=== PATIENT | male | born 1970 | race Caucasian/White ===

== ENCOUNTER 2019-09-02 05:43 | Day surgery (SDC) | payer OTHER ==
[~2019-09-02] VITALS: Ht 188 cm; Wt 97.5 kg
[~2019-09-02 05:43] MED LIST: CLARITIN 10 MG10 MG PO; VITAMIN D3 PO
[2019-09-02] MEDS ORDERED: NEXIUM20 MG (06:41)
[2019-09-02 06:52] VITALS: BP 120/61; Ht 188 cm; Wt 97.5 kg
[2019-09-02] MEDS ORDERED: BC POWDER (07:02)
[2019-09-02] MEDS ORDERED: HYDROCODON-ACE1 EAC7 PO (10:11)
[2019-09-02] MEDS ORDERED: FUROSEMIDE20 MG PO (10:11)
[2019-09-02] MEDS ORDERED: FLOMAX0.4 MG PO (10:11)
== END 2019-09-02 11:55 | disposition home or self-care (01) ==
LOC: D.OPS 05:43 → D.PAN 08:00 → D.OPS 08:00
PROVIDERS: ATTEND Surgery
DX: K40.21 Bilateral inguinal hernia, without obstruction or gangrene, recurrent (principal)